=== PATIENT | female | born 1950 | race Caucasian/White ===

== ENCOUNTER 2016-06-10 22:41 | Emergency (ER) | payer OTHER ==
[~2016-06-10] VITALS: Ht 157.5 cm; Wt 71.4 kg
[~2016-06-10 22:41] MED LIST: ALPR.25 PO; CLON.5 PO; ENAL10TA7 PO; OMEP20TA39 PO; OXYC-68 PO; SOMA350T PO; TRAZ100T4 PO; VENL75 PO
[2016-06-10 22:56] VITALS: BP 150/94; PULSE 83; RESP 18; TEMP 98.2; O2SAT 96
[2016-06-10] MEDS ORDERED: SODIUM CHLOR 0.9% 1000 ML INJ 1,000 ML IV ONE (23:19)
[2016-06-10] MEDS ORDERED: ENAL20TA PO (23:24)
[2016-06-10] MEDS ORDERED: TRAZ100T4 PO (23:24)
[2016-06-10] MEDS ORDERED: OXYC-395 PO (23:24)
[2016-06-10] MEDS ORDERED: OMEP40CA2 PO (23:24)
[2016-06-10] MEDS ORDERED: ALPR.25 PO (23:24)
[2016-06-10] MEDS ORDERED: BACL10TA PO (23:24)
[2016-06-10 23:25] VITALS: BP 150/94; PULSE 83; RESP 18; TEMP 98.2; O2SAT 96
[2016-06-10] MEDS ORDERED: PANTOPRAZOLE SODIUM 40 MG VIAL IV PUSH ONE (23:30)
[2016-06-10] MEDS ORDERED: ONDANSETRON HCL 4 MG/2 ML VIAL IVP ONE (23:30)
[2016-06-10] MEDS ORDERED: SODIUM CHLORIDE 0.9% FLUSH 10 ML FLUSH IVF PRN (23:30)
--- NOTE | 2016-06-10 23:33 | PD ---
HPI Chief Complaint: GI Complaint Time Seen by Provider: 23:19 Travel History International Travel<30 days: No Contact w/Intl Traveler<30days: No Traveled to known affect area: No History of Present Illness HPI 65-year-old female presents to the emergency department by private transportation for evaluation of abdominal pain with nausea vomiting diarrhea times one week and syncope 2 this evening. Patient states that while trying to have a bowel movement she passed out on the toilet between 3 and 4 PM and then again between 6 and 7 PM. Patient states she drove herself to the hospital. Patient states she's been sick for approximately one week. Patient states one week ago she was seen at [facility] after being evaluated by her primary care provider for swelling of the right lower extremity and being sent to the ED for an ultrasound to evaluate for DVT. Reportedly this study was negative. Patient is status post left [id number] amputation for complications from melanoma. Patient has history of COPD hypertension peptic ulcer disease anxiety depression and chronic pain syndrome as well. Patient denies alcohol use and admits to ongoing tobacco use. Patient denies any chest pain palpitations shortness of breath pleuritic pain or sweats. Patient states that she is been experiencing coffee-ground emesis without hematemesis and coffee-ground diarrhea without rafiq hematochezia. Patient also complains of left lower quadrant abdominal pain as well as epigastric pain. Patient did not contact her primary care provider during the week with ongoing GI symptoms after seeing her provider one week ago for right lower extremity swelling which has resolved. Patient denies other concerns or complaints. Patient denies head pain or neck pain. Patient denies chest wall pain pleuritic chest pain shortness of breath back or pelvis pain. No dysuria frequency urgency or hematuria. Patient rates her current pain 3/10 in intensity. Patient states it severe burning. Patient states she took her last pain medication hydrocodone last evening and decided not to take any pain medication today. PFSH Past Medical History Narrative Medical Arthritis asthma COPD anxiety depression melanoma chest pain hypertension GERD irritable bowel syndrome migraines diverticulitis peripheral neuropathy tubal ligation cholecystectomy cervical fusion hysterectomy BKA; tobacco use; nursing notes reviewed Arthritis: Yes (OSTEO) Asthma: Yes Autoimmune Disease: No Blood Disorders: No Anxiety: Yes Depression: Yes Heart Rhythm Problems: No Cancer: Yes (Melanoma) Cardiovascular Problems: No High Cholesterol: No Chemotherapy: No Chest Pain: Yes Congestive Heart Failure: No COPD: Yes Cerebrovascular Accident: No Diabetes: No Diminished Hearing: No Diverticulitis: Yes Endocrine: No Gastrointestinal Disorders: Yes (OBS, IRRITABLE BOWEL) GERD: Yes Glaucoma: No Genitourinary: Yes Headaches: Yes (The patient indicated that she had a headache during this assessment. ) Hepatitis: No Hiatal Hernia: No Hypertension: Yes Immune Disorder: No Implanted Vascular Access Dvce: No Kidney Stones: No Musculoskeletal: Yes (ARTHRITIS) Neurologic: Yes (NUMBNESS AND TINGLING EXTREMETIES) Psychiatric: Yes (Depression, suicidal thoughts, anxiety. ) Reproductive: No Respiratory: Yes (COPD SOB) Integumentary: Yes (RT INNER ANKLE SKIN GRAFT SITE) Immunizations Current: No Migraines: Yes Myocardial Infarction: No Radiation Therapy: No Renal Failure: No Seizures: No Sickle Cell Disease: No Sleep Apnea: No Thyroid Disease: No Ulcer: No PNEUMOCCOCAL Vaccine (Year): 3 Menopausal: Yes : 5 Para: 4 Tubal Ligation: Yes Past Surgical History Abdominal Surgery: Yes (CHOLECYSTECTOMY 2004) AICD: No Appendectomy: No Arteriovenous Shunt: No Cardiac Surgery: No Cholecystectomy: Yes (2004) Ear Surgery: No Endocrine Surgery: No Eye Surgery: No Genitourinary Surgery: No Gynecologic Surgery: Yes (HX OF CANCER, CLITORAS REMOVED) Hysterectomy: Yes Insulin Pump: No Joint Replacement: No Neurologic Surgery: Yes (C4-5 FUSION, "cut the nerve endings in my lower back") Oral Surgery: Yes (TEETH FOR PARTIALS) Pacemaker: No Thoracic Surgery: No Other Surgery: Yes (Spinal fusion, Hysterectomy,BKA) Social History Alcohol Use: No Tobacco Use: Yes (1/2 ppd) Substance Use: Yes (HX OF MARIJUANA) Allergies-Medications (Allergen,Severity, Reaction): Coded Allergies: Darvocet-N 100 (Verified Allergy, Severe, N & V; hives, 06/10/16) Toradol (Verified Allergy, Severe, ITCHING, 06/10/16) Darvon (Verified Adverse Reaction, Severe, VOMITING, 06/10/16) Flexeril (Verified Adverse Reaction, Severe, VOMITING, 06/10/16) Talwin (Verified Adverse Reaction, Severe, vomiting, 06/10/16) Morphine (Verified Adverse Reaction, Intermediate, NAUSEA, 06/10/16) STATES NOT ALLERGIC Tylenol #3 (Verified Adverse Reaction, Intermediate, EMESIS, 06/10/16) Reported Meds & Prescriptions Reported Meds & Active Scripts Active Carafate Liq (Sucralfate) 1 Gm/10 Ml Susp 1 Gm PO QID 7 Days on empty stomach Reported Omeprazole 40 Mg Cap 40 Mg PO DAILY Trazodone (Trazodone HCl) 100 Mg Tab 200 Mg PO HS Enalapril (Enalapril Maleate) 20 Mg Tab 20 Mg PO BID Oxycodone (Oxycodone HCl) 10 Mg Tab 10 Mg PO Q4H PRN Baclofen 10 Mg Tab 10 Mg PO DAILY Xanax (Alprazolam) 0.25 Mg Tab 0.25 Mg PO Q4H PRN Review of Systems Except as stated in HPI: all other systems reviewed are Neg General / Constitutional: Positive: Fever, No: Chills HENT: No: Congestion Cardiovascular: Positive: Syncope, No: Chest Pain or Discomfort, Diaphoresis Respiratory: No: Shortness of Breath Gastrointestinal: Positive: Nausea, Vomiting, Diarrhea, Abdominal Pain, No: Hematemesis, Hematochezia Genitourinary: No: Urgency, Frequency, Dysuria, Flank Pain Musculoskeletal: No: Myalgias, Arthralgias Skin: No Rash Neurologic: Positive: Weakness, Dizziness, Syncope, No: Focal Abnormalities, Coordination Problem, Headache Psychiatric: Positive: Anxiety, No: Depression, Suicidal Ideations Hematologic/Lymphatic: No: Easy Bruising Physical Exam Narrative GENERAL: Well-developed well-nourished female in no acute distress no respiratory distress SKIN: Warm and dry. HEAD: Atraumatic. Normocephalic. EYES: Pupils equal and round. No scleral icterus. No injection or drainage. ENT: No nasal bleeding or discharge. Mucous membranes pink and moist. NECK: Trachea midline. No JVD. CARDIOVASCULAR: Regular rate and rhythm. RESPIRATORY: No accessory muscle use. Clear to auscultation. Breath sounds equal bilaterally. GASTROINTESTINAL: Abdomen soft, tender left lower quadrant without guarding or rebound, nondistended. Hepatic and splenic margins not palpable. Rectal exam: Normal sphincter tone brown mucoid stool on the exam glove. MUSCULOSKELETAL: Extremities without clubbing, cyanosis, or edema. No obvious deformities. NEUROLOGICAL: Awake and alert. No obvious cranial nerve deficits. Motor grossly within normal limits. Five out of 5 muscle strength in the arms and legs. Normal speech. PSYCHIATRIC: Appropriate mood and affect; insight and judgment normal. Data Data Last Documented VS Vital Signs Date Time Temp Pulse Resp B/P Pulse Ox O2 Delivery O2 Flow Rate FiO2 06/11/16 02:49 18 96 06/11/16 02:01 73 107/68 73 124/78 79 139/94 06/11/16 01:59 Room Air 06/10/16 23:25 98.2 Orders Electrocardiogram (06/10/16 23:19) Complete Blood Count With Diff (06/10/16 23:19) Comprehensive Metabolic Panel (06/10/16 23:19) Magnesium (Mg) (06/10/16 23:19) Troponin I (06/10/16 23:19) Act Partial Throm Time (Ptt) (06/10/16 23:19) Prothrombin Time / Inr (Pt) (06/10/16 23:19) Urinalysis - C+S If Indicated (06/10/16 23:19) Chest, Single Ap (06/10/16 23:19) Ct Brain W/O Iv Contrast(Rout) (06/10/16 23:19) Ecg Monitoring (06/10/16 23:19) Iv Access Insert/Monitor (06/10/16 23:19) Oximetry (06/10/16 23:19) Ondansetron Inj (Zofran Inj) (06/10/16 23:30) Sodium Chloride 0.9% Flush (Ns Flush) (06/10/16 23:30) Sodium Chlor 0.9% 1000 Ml Inj (Ns 1000 M (06/10/16 23:19) Pantoprazole Inj (Protonix Inj) (06/10/16 23:30) Type And Screen (06/10/16 23:19) Hydromorphone Pf Inj (Dilaudid Pf Inj) (06/11/16 00:45) Ct Abd/Pel W/O Iv Contrast (06/10/16 ) Orthostatic Vital Signs (06/11/16 01:42) Sodium Chlor 0.9% 1000 Ml Inj (Ns 1000 M (06/11/16 02:15) Sucralfate Liq (Carafate Liq) (06/11/16 02:30) Labs Laboratory Tests Test 06/11/16 00:10 White Blood Count 8.5 TH/MM3 Red Blood Count 4.67 MIL/MM3 Hemoglobin 13.8 GM/DL Hematocrit 42.1 % Mean Corpuscular Volume 90.0 FL Mean Corpuscular Hemoglobin 29.5 PG Mean Corpuscular Hemoglobin 32.7 % Concent Red Cell Distribution Width 14.0 % Platelet Count 333 TH/MM3 Mean Platelet Volume 10.0 FL Neutrophils (%) (Auto) 61.4 % Lymphocytes (%) (Auto) 32.0 % Monocytes (%) (Auto) 4.4 % Eosinophils (%) (Auto) 1.2 % Basophils (%) (Auto) 1.0 % Neutrophils # (Auto) 5.2 TH/MM3 Lymphocytes # (Auto) 2.7 TH/MM3 Monocytes # (Auto) 0.4 TH/MM3 Eosinophils # (Auto) 0.1 TH/MM3 Basophils # (Auto) 0.1 TH/MM3 CBC Comment DIFF FINAL Differential Comment Prothrombin Time 10.8 SEC Prothromb Time International 1.0 RATIO Ratio Activated Partial 23.8 SEC Thromboplast Time Urine Color YELLOW Urine Turbidity CLEAR Urine pH 5.5 Urine Specific [place] 1.007 Urine Protein NEG mg/dL Urine Glucose (UA) NEG mg/dL Urine Ketones NEG mg/dL Urine Occult Blood SMALL Urine Nitrite NEG Urine Bilirubin NEG Urine Leukocyte Esterase NEG Urine RBC 0-3 /hpf Urine Squamous Epithelial 0-5 /hpf Cells Urine Bacteria RARE /hpf Urine Mucus RARE /lpf Microscopic Urinalysis Comment CULT NOT INDICATED Sodium Level 142 MEQ/L Potassium Level 3.8 MEQ/L Chloride Level 105 MEQ/L Carbon Dioxide Level 29.6 MEQ/L Anion Gap 7 MEQ/L Blood Urea Nitrogen 4 MG/DL Creatinine 0.88 MG/DL Estimat Glomerular Filtration 65 ML/MIN Rate Random Glucose 95 MG/DL Calcium Level 9.1 MG/DL Magnesium Level 2.1 MG/DL Total Bilirubin 0.3 MG/DL Aspartate Amino Transf 19 U/L (AST/SGOT) Alanine Aminotransferase 19 U/L (ALT/SGPT) Alkaline Phosphatase 42 U/L Troponin I LESS THAN 0.02 NG/ML Total Protein 7.3 GM/DL Albumin 3.7 GM/DL Blood Type O POSITIVE Antibody Screen NEGATIVE MDM Medical Decision Making Medical Screen Exam Complete: Yes Emergency Medical Condition: Yes Medical Record Reviewed: Yes Interpretation(s) EKG normal sinus rhythm rate [address] elevation or injury pattern change noted Differential Diagnosis Gastroenteritis, electrolyte disturbance, anemia, GI bleed, diverticulitis, vasovagal syncope, minor CHI, ICH, arrhythmia Narrative Course Patient placed on ekg monitor tech IV access obtained EKG performed reveals no acute ST elevation or injury pattern; patient administered maintenance IV fluids normal saline 125 cc per hour along with Protonix 40 mg IV Zofran 4 mg IV and imaging studies ordered HemaPrompt Point of Care Internal Pos. & Neg. Controls: Passed Fecal Specimen Occult Blood: Negative Diagnosis Primary Impression: Gastroenteritis Additional Impressions: Gastritis Qualified Code: K29.70 - Gastritis without bleeding, unspecified chronicity, unspecified gastritis type Vasovagal syncope Referrals: Primary Care Physician 1 day Patient Instructions: General Instructions, Narcotic given in the ED Additional Instructions: Follow clear liquid diet for next 12-24 hours advance as tolerated to bland/ Driss diet then regular diet avoiding fried and fatty foods Continue current medications as presently prescribed as tolerated Use Carafate as prescribed for 7 days Follow-up with her primary care provider and your flare maker Return to the emergency department for any concerns or change in condition Take acetaminophen/Tylenol as needed for fever 100.4F or greater Do not take any nonsteroidal anti-inflammatory medication such as ibuprofen/ Advil/Motrin or Aleve/Naprosyn/naproxen Med/Other Pt SpecificInfo: Prescription(s) given Scripts Sucralfate Liq (Carafate Liq)1 Gm/10 Ml Susp1 Gm PO QID 7 Days Ref 0 on empty stomach Prov:Giovana Rivera MD 06/11/16 Disposition: 01 DISCHARGE HOME Condition: Stable Giovana Rivera MD Jun 10, 2016 23:33
[2016-06-10 23:34] VITALS: RESP 18; O2SAT 96
--- NOTE | 2016-06-10 23:44 | RADHPO ---
EXAM DATE/TIME: 06/10/2016 23:34 [facility] COMPARISON: CHEST SINGLE AP, June 02, 2015, 22:01. INDICATIONS : Nausea, vomiting and diarrhea. MEDICAL HISTORY : Emphysema. Chronic obstructive pulmonary disease. SURGICAL HISTORY : None. ENCOUNTER: Initial ACUITY: 4 - 6 days PAIN SCORE: 6/10 LOCATION: Bilateral chest FINDINGS: A single view of the chest demonstrates the lungs to be symmetrically aerated without evidence of mas s, infiltrate or effusion. The cardiomediastinal contours are unremarkable and stable. Osseous stru ctures are intact and stable. CONCLUSION: No acute disease. No significant change has occurred. Darell Taylor MD on June 10, 2016 at 23:42 Board Certified Radiologist. This report was verified electronically.
[2016-06-11] VITALS: BP 139/74; PULSE 72; RESP 18; O2SAT 96
[2016-06-11] MEDS ORDERED: HYDROmorphone HCL PF 1 MG/ML VIAL IV PUSH ONE (00:45)
[2016-06-11 00:49] LABS: AUTOMATED NEUTROPHIL # 5.2 TH/MM3 (1.8-7.7); BASOPHIL # 0.1 TH/MM3 (0-0.2); BLOOD, URINE SMALL (NEG); EOSINOPHIL # 0.1 TH/MM3 (0-0.4); EOSINOPHIL % 1.2 % (0.0-4.0); GLUCOSE,URINE NEG (NEG); HEMATOCRIT 42.1 % (35.0-46.0); KETONE, URINE NEG (NEG); LYMPHOCYTE # 2.7 TH/MM3 (1.0-4.8); MEAN CORPUSCULAR HEMOGLOBIN 29.5 PG (27.0-34.0); MEAN CORPUSCULAR HGB CONC 32.7 % (32.0-36.0); MONO % 4.4 % (0.0-8.0); NEUT % 61.4 % (16.0-70.0); NITRITE,URINE NEG (NEG); PH, URINE 5.5 (5.0-8.5); PLATELET COUNT 333 TH/MM3 (150-450); RED BLOOD COUNT 4.67 MIL/MM3 (4.00-5.30); WHITE BLOOD COUNT 8.5 TH/MM3 (4.0-11.0)
[2016-06-11 00:50] LABS: HEMO FLAGS DIFF FINAL
[2016-06-11 00:54] LABS: BACTERIA, URINE RARE /hpf; MUCUS URINE RARE /lpf (OCC); SQUAMOUS EPITHELIAL CELL URINE 0-5 /hpf (0-5); URINE COLOR YELLOW (YELLW/STRAW)
[2016-06-11 00:55] LABS: CHLORIDE 105 MEQ/L (98-107); COMMENT (UR) CULT NOT INDICATED; CULTURE IF INDICATED CULT NOT INDICATED; POTASSIUM 3.8 MEQ/L (3.5-5.1); RBC, URINE 0-3 /hpf (0-3); SODIUM (NA) 142 MEQ/L (136-145)
[2016-06-11 00:58] LABS: ANION GAP 7 MEQ/L (5-15); BICARBONATE 29.6 MEQ/L (21.0-32.0); MAGNESIUM 2.1 MG/DL (1.5-2.5)
[2016-06-11 00:59] LABS: BLOOD UREA NITROGEN 4 MG/DL (7-18)
[2016-06-11 01:00] LABS: APTT (PATIENT) 23.8 SEC (24.3-30.1); PROTHROMBIN TIME - PATIENT 10.8 SEC (9.8-11.6)
[2016-06-11 01:01] LABS: ALT (GPT) 19 U/L (10-53); AST (GOT) 19 U/L (15-37)
[2016-06-11 01:02] LABS: GLOMERULAR FILTRATION RATE 65 ML/MIN (>89)
[2016-06-11 01:03] VITALS: BP 159/80; PULSE 76; RESP 18; O2SAT 96
[2016-06-11 01:03] LABS: TOTAL BILIRUBIN ADULT 0.3 MG/DL (0.2-1.0)
[2016-06-11 01:04] LABS: ALKALINE PHOSPHATASE 42 U/L (45-117)
--- NOTE | 2016-06-11 01:39 | RADHPO ---
EXAM DATE/TIME: 06/11/2016 01:07 [facility] COMPARISON: CT BRAIN W/O CONTRAST, June 02, 2015, 21:42. INDICATIONS : Dizziness. Nausea. Vomiting. RADIATION DOSE: 66.01 CTDIvol (mGy) MEDICAL HISTORY : Hypertension. Carcinoma, not otherwise specified. SURGICAL HISTORY : None. ENCOUNTER: Initial ACUITY: 4 - 6 days PAIN SCALE: 10/10 LOCATION: cranial TECHNIQUE: Multiple contiguous axial images were obtained of the head. Using automated exposure control and adj ustment of the mA and/or kV according to patient size, radiation dose was kept as low as reasonably a chievable to obtain optimal diagnostic quality images. FINDINGS: CEREBRUM: The ventricles are normal for age. No evidence of midline shift, mass lesion, hemorrhage or acute in farction. There are stable chronic white matter changes compared to the prior study. No extra-axial fluid collections are seen. POSTERIOR FOSSA: The cerebellum and brainstem are intact. The 4th ventricle is midline. The cerebellopontine angle i s unremarkable. EXTRACRANIAL: The visualized portion of the orbits is intact. SKULL: The calvaria is intact. No evidence of skull fracture. CONCLUSION: Stable CT scan of the brain compared to the prior examination. Darell Taylor MD on June 11, 2016 at 1:36 Board Certified Radiologist. This report was verified electronically.
--- NOTE | 2016-06-11 01:42 | RADHPO ---
EXAM DATE/TIME: 06/11/2016 01:11 [facility] COMPARISON: CT ABDOMEN & PELVIS W/O CONTRAST, February 17, 2014, 21:33. INDICATIONS : Left lower quadrant pain. Nausea. Vomiting. Diarrhea. ORAL CONTRAST: No oral contrast ingested. RADIATION DOSE: 13.27 CTDIvol (mGy) MEDICAL HISTORY : Gastroesophageal reflux disease. Hypertension. Carcinoma, not otherwise specified. SURGICAL HISTORY : Cholecystectomy. Hysterectomy. ENCOUNTER: Initial ACUITY: 4 - 6 days PAIN SCALE: 10/10 LOCATION: Left lower quadrant TECHNIQUE: Volumetric scanning of the abdomen and pelvis was performed. Using automated exposure control and ad justment of the mA and/or kV according to patient size, radiation dose was kept as low as reasonably achievable to obtain optimal diagnostic quality images. The lack of IV contrast limits the diagnosis for certain organ pathology. FINDINGS: LOWER LUNGS: The visualized lower lungs are clear. LIVER: Homogeneous density without lesion. There is no dilation of the biliary tree. No gallbladder, surgi escobar removed. SPLEEN: Normal size without lesion. PANCREAS: Within normal limits. KIDNEYS: Normal in size and shape. There is no mass, stone, or hydronephrosis. ADRENAL GLANDS: Within normal limits. VASCULAR: There is no aortic aneurysm. BOWEL/MESENTERY: The stomach, small bowel, and colon demonstrate no acute abnormality. There is no free intraperitone al air or fluid. The appendix is unremarkable. There are some scattered diverticula along the sigmoid colon without inflammatory changes. ABDOMINAL WALL: Within normal limits. RETROPERITONEUM: There is no lymphadenopathy. BLADDER: No wall thickening or mass. REPRODUCTIVE: Within normal limits. INGUINAL: There is no lymphadenopathy or hernia. MUSCULOSKELETAL: Within normal limits for patient age. No significant change compared to the prior study. CONCLUSION: 1. Scattered diverticulosis of the sigmoid colon. No inflammatory changes are seen at this time. 2. Status post cholecystectomy. 3. No new or significant changes compared to the prior study. Darell Taylor MD on June 11, 2016 at 1:38 Board Certified Radiologist. This report was verified electronically.
[2016-06-11 01:59] VITALS: BP 150/82; PULSE 75; RESP 18; O2SAT 97
[2016-06-11 02:01] VITALS: BP_SYST 107; BP_SYST 124; BP_SYST 139; BP_DIAS 68; BP_DIAS 78; BP_DIAS 94; RESP 18
[2016-06-11] MEDS ORDERED: SODIUM CHLOR 0.9% 1000 ML INJ 1,000 ML IV ONE (02:15)
[2016-06-11] MEDS ORDERED: CARA1SUS3 PO (02:17)
[2016-06-11] MEDS ORDERED: SUCRALFATE 1 GM/10 ML CUP PO ONE (02:30)
--- NOTE | 2016-06-11 13:26 | EKG ---
Date Performed: 06/10/2016 Time Performed: 23:26:04 PTAGE: 65 years EKG: Possible ectopic atrial rhythm Borderline ECG PREVIOUS TRACING : 08/14/2014 13.24 No significant change from previous tracing noted. DOCTOR: Reji Reed Interpretating Date/Time 06/11/2016 13:24:30
== END 2016-06-11 02:51 | disposition home or self-care (01) ==
LOC: PHED 22:41
DX: K52.9 Noninfective gastroenteritis and colitis, unspecified (principal); K29.70 Gastritis, unspecified, without bleeding; R55 Syncope and collapse; R19.7 Diarrhea, unspecified; R10.9 Unspecified abdominal pain; J44.9 Chronic obstructive pulmonary disease, unspecified; J45.909 Unspecified asthma, uncomplicated; I10 Essential (primary) hypertension; R94.31 Abnormal electrocardiogram [ECG] [EKG]; F17.210 Nicotine dependence, cigarettes, uncomplicated
CPT/HCPCS: 70450; 71010; 74176; 80053; 81001; 83735; 84484; 85025; 85610; 85730; 86850; 86900; 86901; 93005; 96361; 96374; 96375; 99284; C9113; J1170; J2405; J7030

== ENCOUNTER 2016-08-04 20:13 | Emergency (ER) | payer OTHER ==
[~2016-08-04] VITALS: Ht 160 cm; Wt 76.3 kg
[~2016-08-04 20:13] MED LIST changes: +BACL10TA PO; +CARA1SUS3 PO; -CLON.5 PO; -ENAL10TA7 PO; +ENAL20TA PO; -OMEP20TA39 PO; +OMEP40CA2 PO; +OXYC-395 PO; -OXYC-68 PO; -SOMA350T PO; -VENL75 PO
[2016-08-04 20:17] VITALS: BP 102/64; PULSE 79; RESP 20; TEMP 98.3; O2SAT 92
[2016-08-04] MEDS ORDERED: TRAZ100T6 PO (21:09)
[2016-08-04] MEDS ORDERED: SODIUM CHLORIDE 0.9% FLUSH 10 ML FLUSH IVF PRN (21:15)
--- NOTE | 2016-08-04 21:21 | PD ---
HPI Chief Complaint: Pain: Acute or Chronic Time Seen by Provider: 21:06 Travel History International Travel<30 days: No Contact w/Intl Traveler<30days: No Traveled to known affect area: No History of Present Illness HPI 66-year-old female presents to the emergency department by private vehicle after driving herself to the ER for complaint of generalized body pain chest pain shortness of breath lower extremity pain back pain and redness to her left BKA stump. A schneider report subjective fever no chills nonproductive cough. Patient states she last traveled long distance 2 months ago. Patient states symptoms of present for 3 weeks. Patient states her doctors out of town so she has not been able to get a refill of her medications which she has been out of for one week or maybe 2 weeks. Patient reportedly takes Percocet. Patient states that this does not provide her adequate relief and she needs hydrocodone. 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 Patient points to her left lower back over the SI joint. Patient denies nausea vomiting abdominal pain diarrhea dysuria frequency urgency or flank pain. Patient states that she has also had generalized weakness and has been experiencing frequent falls but denies any head injury. Patient is chronically prescribed trazodone oxycodone baclofen and Xanax as well as enalapril. Patient rates her overall pain 10 over 10 in intensity. PFSH Past Medical History Narrative Medical Anxiety depression COPD arthritis melanoma chest pain bowel syndrome GERD hypertension peripheral neuropathy diverticulosis tubal ligation cholecystectomy cervical fusion hysterectomy left BKA tobacco use alcohol use; nursing notes reviewed Arthritis: Yes (OSTEO) Asthma: Yes Autoimmune Disease: No Blood Disorders: No Anxiety: Yes Depression: Yes Heart Rhythm Problems: No Cancer: Yes (Melanoma) Cardiovascular Problems: No High Cholesterol: No Chemotherapy: No Chest Pain: Yes Congestive Heart Failure: No COPD: Yes Cerebrovascular Accident: No Diabetes: No Diminished Hearing: No Diverticulitis: Yes Endocrine: No Gastrointestinal Disorders: Yes (OBS, IRRITABLE BOWEL) GERD: Yes Glaucoma: No Genitourinary: Yes Headaches: Yes Hepatitis: No Hiatal Hernia: No Hypertension: Yes Immune Disorder: No Implanted Vascular Access Dvce: No Kidney Stones: No Musculoskeletal: Yes (ARTHRITIS) Neurologic: Yes (NUMBNESS AND TINGLING EXTREMETIES) Psychiatric: Yes (Depression, suicidal thoughts, anxiety. ) Reproductive: No Respiratory: Yes (COPD SOB) Integumentary: Yes (RT INNER ANKLE SKIN GRAFT SITE) Immunizations Current: Yes Migraines: Yes Myocardial Infarction: No Radiation Therapy: No Renal Failure: No Seizures: No Sickle Cell Disease: No Sleep Apnea: No Thyroid Disease: No Ulcer: No PNEUMOCCOCAL Vaccine (Year): 3 ?: Not Menopausal: Yes : 5 Para: 4 Tubal Ligation: Yes Past Surgical History Abdominal Surgery: Yes (CHOLECYSTECTOMY 2004) AICD: No Appendectomy: No Arteriovenous Shunt: No Cardiac Surgery: No Cholecystectomy: Yes (2004) Ear Surgery: No Endocrine Surgery: No Eye Surgery: No Genitourinary Surgery: No Gynecologic Surgery: Yes (HX OF CANCER, CLITORAS REMOVED) Hysterectomy: Yes Insulin Pump: No Joint Replacement: No Neurologic Surgery: Yes (C4-5 FUSION, "cut the nerve endings in my lower back") Oral Surgery: Yes (TEETH FOR PARTIALS) Pacemaker: No Thoracic Surgery: No Other Surgery: Yes (Spinal fusion, Hysterectomy,BKA) Social History Alcohol Use: No Tobacco Use: Yes (1 PPD) Substance Use: Yes (MARIJUANA ON OCCASION) Allergies-Medications (Allergen,Severity, Reaction): Coded Allergies: Darvocet-N 100 (Verified Allergy, Severe, N & V; hives, 08/04/16) Toradol (Verified Allergy, Severe, ITCHING, 08/04/16) Darvon (Verified Adverse Reaction, Severe, VOMITING, 08/04/16) Flexeril (Verified Adverse Reaction, Severe, VOMITING, 08/04/16) Talwin (Verified Adverse Reaction, Severe, vomiting, 08/04/16) Morphine (Verified Adverse Reaction, Intermediate, NAUSEA, 08/04/16) STATES NOT ALLERGIC Tylenol #3 (Verified Adverse Reaction, Intermediate, EMESIS, 08/04/16) Reported Meds & Prescriptions Reported Meds & Active Scripts Active Carafate Liq (Sucralfate) 1 Gm/10 Ml Susp 1 Gm PO QID 7 Days on empty stomach Reported Trazodone (Trazodone HCl) 100 Mg Tablet 200 Mg PO HS Omeprazole 40 Mg Cap 40 Mg PO DAILY Enalapril (Enalapril Maleate) 20 Mg Tab 20 Mg PO BID Oxycodone (Oxycodone HCl) 10 Mg Tab 10 Mg PO Q4H PRN Baclofen 10 Mg Tab 10 Mg PO DAILY Xanax (Alprazolam) 0.25 Mg Tab 0.25 Mg PO Q4H PRN Review of Systems Except as stated in HPI: all other systems reviewed are Neg General / Constitutional: Positive: Fever (subjective), No: Chills HENT: No: Headaches, Congestion, Neck Pain Cardiovascular: Positive: Chest Pain or Discomfort, No: Diaphoresis, Syncope, Dyspnea on exertion, Edema Respiratory: Positive: Cough, Shortness of Breath, Wheezing, No: Hemoptysis, Pleuritic Pain Gastrointestinal: No: Nausea, Vomiting, Diarrhea, Abdominal Pain Genitourinary: No: Dysuria, Flank Pain Musculoskeletal: Positive: Myalgias, Arthralgias, Pain Skin: No Rash Neurologic: Positive: Weakness, Dizziness, No: Syncope, Focal Abnormalities, Coordination Problem Psychiatric: Positive: Anxiety, No: Depression, Suicidal Ideations Endocrine: No: Heat Intolerance, Cold Intolerance Hematologic/Lymphatic: No: Easy Bruising Physical Exam Narrative GENERAL: Well-developed well-nourished female in no acute distress no respiratory distress repetitively complaining about entire body pain; GCS 15 SKIN: Warm and dry. HEAD: Normocephalic. EYES: No scleral icterus. No injection or drainage. NECK: Supple, trachea midline. No JVD or lymphadenopathy. CARDIOVASCULAR: Regular rate and rhythm without murmurs, gallops, or rubs. RESPIRATORY: Breath sounds equal bilaterally few expiratory wheezes bilaterally no rales or rhonchi. No accessory muscle use. GASTROINTESTINAL: Abdomen soft, non-tender, nondistended. MUSCULOSKELETAL: No cyanosis, right lower extremity trace to 1+ edema, dorsalis pedis pulse 2+ to palpation; left lower extremity left BKA no edema no increased warmth mild erythema; bilateral femoral pulses 2+ to palpation. BACK: Nontender without obvious deformity. Tender to palpation over the left SI joint. No CVA tenderness. Data Data Last Documented VS Vital Signs Date Time Temp Pulse Resp B/P Pulse Ox O2 Delivery O2 Flow Rate FiO2 08/04/16 20:17 98.3 79 20 102/64 92 Orders Complete Blood Count With Diff (08/04/16 21:06) Basic Metabolic Panel (Bmp) (08/04/16 21:06) Magnesium (Mg) (08/04/16 21:06) Troponin I (08/04/16 21:06) Urinalysis - C+S If Indicated (08/04/16 21:06) Iv Access Insert/Monitor (08/04/16 21:06) Electrocardiogram (08/04/16 21:06) Ecg Monitoring (08/04/16 21:06) Oximetry (08/04/16 21:06) Oxygen Administration (08/04/16 21:06) Chest, Single Ap (08/04/16 21:06) Sodium Chloride 0.9% Flush (Ns Flush) (08/04/16 21:15) Albuterol-Ipratropium Neb (Duoneb Neb) (08/04/16 21:15) Us Leg Venous Doppler (08/04/16 ) Alcohol (Ethanol) (08/04/16 21:06) Drug Screen, Random Urine (08/04/16 21:06) MDM Medical Decision Making Medical Screen Exam Complete: Yes Emergency Medical Condition: Yes Medical Record Reviewed: Yes Differential Diagnosis Chronic pain syndrome, medication refill, exacerbation COPD, ACS, DVT, PE, pneumonia, UTI, malingering Narrative Course IV access obtained specimens collected and sent for resulting; patient administered DuoNeb 2 Giovana Rivera MD Aug 04, 2016 21:21
[2016-08-04] MEDS: RESP: ALBUTEROL 2.5 MG/IPRATROPIUM 0.5 MG NEB (SCH) INH ×2 (21:28→21:39)
[2016-08-04 21:37] LABS: AUTOMATED NEUTROPHIL # 4.2 TH/MM3 (1.8-7.7); BASOPHIL # 0.1 TH/MM3 (0-0.2); BASOPHIL % 1.5 % (0.0-2.0); EOSINOPHIL # 0.3 TH/MM3 (0-0.4); EOSINOPHIL % 3.6 % (0.0-4.0); HEMATOCRIT 34.1 % (35.0-46.0); HEMO FLAGS DIFF FINAL; LYMPH % 30.6 % (9.0-44.0); LYMPHOCYTE # 2.3 TH/MM3 (1.0-4.8); MEAN CELL VOLUME 88.2 FL (80.0-100.0); MEAN CORPUSCULAR HEMOGLOBIN 29.5 PG (27.0-34.0); MEAN CORPUSCULAR HGB CONC 33.4 % (32.0-36.0); MONO % 7.8 % (0.0-8.0); NEUT % 56.5 % (16.0-70.0); PLATELET COUNT 191 TH/MM3 (150-450); RED BLOOD COUNT 3.87 MIL/MM3 (4.00-5.30); RED CELL DISTRIBUTION WIDTH 12.3 % (11.6-17.2); WHITE BLOOD COUNT 7.5 TH/MM3 (4.0-11.0)
[2016-08-04 21:38] LABS: BLOOD, URINE TRACE (NEG); GLUCOSE,URINE NEG (NEG); KETONE, URINE NEG (NEG); NITRITE,URINE NEG (NEG); PH, URINE 5.5 (5.0-8.5)
[2016-08-04 21:54] LABS: URINE COLOR STRAW (YELLW/STRAW)
[2016-08-04 21:55] LABS: SQUAMOUS EPITHELIAL CELL URINE 0-5 /hpf (0-5); WBC, URINE 0-2 /hpf (0-5)
[2016-08-04 21:56] LABS: AMPHETAMINE, URINE NEG (NEG); COMMENT (UR) CULT NOT INDICATED; CULTURE IF INDICATED CULT NOT INDICATED; RBC, URINE 0-3 /hpf (0-3)
[2016-08-04 21:57] LABS: BARBITURATES, URINE NEG (NEG)
[2016-08-04 22:01] LABS: COCAINE, URINE NEG (NEG)
[2016-08-04 22:02] LABS: CHLORIDE 97 MEQ/L (98-107); POTASSIUM 3.3 MEQ/L (3.5-5.1); SODIUM (NA) 137 MEQ/L (136-145)
[2016-08-04 22:05] LABS: ANION GAP 7 MEQ/L (5-15); BICARBONATE 32.7 MEQ/L (21.0-32.0); BLOOD UREA NITROGEN 4 MG/DL (7-18); MAGNESIUM 1.8 MG/DL (1.5-2.5)
[2016-08-04 22:08] LABS: GLOMERULAR FILTRATION RATE 61 ML/MIN (>89)
[2016-08-04 22:20] VITALS: BP 140/80; PULSE 82; O2SAT 97
--- NOTE | 2016-08-04 22:21 | RADHPO ---
EXAM DATE/TIME: 08/04/2016 21:45 [facility] COMPARISON: US LEG RIGHT VENOUS DOPPLER, November 12, 2012, 11:01. INDICATIONS : Right leg swelling. MEDICAL HISTORY : Hypercholesterolemia. Gastroesophageal reflux disease. Chronic obstructive pulmonary disease. Hype rtension. Syncope. Ovarian cyst. Arthritis. Carcinoma, unspecified. SURGICAL HISTORY : Cholecystectomy. Tubal ligation. C4-5 fusion. Partial hysterectomy. ENCOUNTER: Initial ACUITY: 1 day PAIN SCORE: 8/10 LOCATION: Right leg. TECHNIQUE: Venous ultrasound of the leg was performed from the inguinal ligament to the proximal calf. Real-david e, color Doppler and spectral tracing, compression and augmentation techniques were used. FINDINGS: There is normal compressibility of the deep venous system from the inguinal region to the proximal ca lf. No echogenic clot is seen in the lumen of the common femoral, femoral, popliteal, and posterior tibial veins. There is a normal response of the venous system to proximal and distal augmentation an d respiration. CONCLUSION: No DVT is identified in the right lower extremity. Bear Zaidi MD on August 04, 2016 at 22:18 Board Certified Radiologist. This report was verified electronically.
[2016-08-04] MEDS ORDERED: methylPREDNISolone SOD SUCC 125 MG/2 ML VIAL IV PUSH ONE (22:30)
[2016-08-04] MEDS ORDERED: POTASSIUM CHLORIDE 20 MEQ CONTROLLED RELEASE TAB PO ONE (22:30)
[2016-08-04] MEDS ORDERED: ALBUAER3 INH (22:36)
[2016-08-04] MEDS ORDERED: TRAM50TA PO (22:36)
[2016-08-04] MEDS ORDERED: MEDR4PAK PO (22:36)
--- NOTE | 2016-08-04 23:51 | RADHPO ---
EXAM DATE/TIME: 08/04/2016 21:52 [facility] COMPARISON: No previous studies available for comparison. INDICATIONS : Short of breath. MEDICAL HISTORY : Emphysema. Chronic obstructive pulmonary disease. SURGICAL HISTORY : None. ENCOUNTER: Initial ACUITY: 1 day PAIN SCORE: 7/10 LOCATION: Bilateral chest FINDINGS: Mild bibasilar atelectasis present. No large effusion seen. No pneumothorax. Heart size stable, withi n normal limits. CONCLUSION: Mild bibasilar atelectasis. Bear Gaspar MD on August 04, 2016 at 23:49 Board Certified Radiologist. This report was verified electronically.
--- NOTE | 2016-08-05 14:34 | EKG ---
Date Performed: 08/04/2016 Time Performed: 21:26:41 PTAGE: 66 years EKG: Ectopic atrial rhythm ABNORMAL RHYTHM ECG Compared to prior tracing no significant change. PREVIOUS TRACING : 06/10/2016 23.26 DOCTOR: Candelario Mae Interpretating Date/Time 08/05/2016 14:31:58
== END 2016-08-04 22:53 | disposition home or self-care (01) ==
LOC: PHED 20:13
DX: J44.1 Chronic obstructive pulmonary disease with (acute) exacerbation (principal); J45.909 Unspecified asthma, uncomplicated; G89.4 Chronic pain syndrome; I10 Essential (primary) hypertension; F17.200 Nicotine dependence, unspecified, uncomplicated; M79.89 Other specified soft tissue disorders; Z79.899 Other long term (current) drug therapy; R60.9 Edema, unspecified
CPT/HCPCS: 71010; 80048; 80307; 81001; 83735; 84484; 85025; 93005; 93971; 94640; 94664; 99285

== ENCOUNTER 2016-12-23 19:22 | Emergency (ER) | payer MEDICAID, OTHER ==
[~2016-12-23] VITALS: Ht 157.5 cm; Wt 74.2 kg
[~2016-12-23 19:22] MED LIST changes: +ALBUAER3 INH; +MEDR4PAK PO; +TRAM50TA PO; +TRAZ100T10 PO; -TRAZ100T4 PO
[2016-12-23 19:44] VITALS: BP 172/81; PULSE 76; RESP 20; TEMP 98.4; O2SAT 96
[2016-12-23] MEDS ORDERED: GABA300C5 PO (20:38)
[2016-12-23 20:40] VITALS: RESP 18; O2SAT 98
--- NOTE | 2016-12-23 20:43 | PD ---
HPI Chief Complaint: Respiratory Symptoms Time Seen by Provider: 20:31 Travel History International Travel<30 days: No Contact w/Intl Traveler<30days: No Traveled to known affect area: No History of Present Illness HPI The patient is a 66-year-old female who presents to the emergency department for a one-week history of cough and cold symptoms. The patient states she developed mostly dry nonproductive cough 1 week ago, however, is now spitting up "white stuff ". She does complain of mild shortness of breath and diffuse wheezing. The patient does have a history of COPD that was diagnosed one year ago, does not have any inhalers at home currently. The patient states she is unable to get an appointment until Friday with her primary physician, Dr. Yury Valentine. The patient complains of generalized malaise and myalgias,, however, denies any actual fever. She denies any nausea, vomiting, diarrhea, or abdominal pain. She does have a history of tobacco use, however, states her last cigarette was 2 weeks ago. She is not followed by a table games dealer. Symptoms are moderate without any current alleviating or exacerbating factors. PFSH Past Medical History Arthritis: Yes (OSTEO) Asthma: Yes Autoimmune Disease: No Blood Disorders: No Anxiety: Yes Depression: Yes Heart Rhythm Problems: No Cancer: Yes (Melanoma) Cardiovascular Problems: No High Cholesterol: No Chemotherapy: No Chest Pain: Yes Congestive Heart Failure: No COPD: Yes Cerebrovascular Accident: No Diabetes: No Diminished Hearing: No Diverticulitis: Yes Endocrine: No Gastrointestinal Disorders: Yes (OBS, IRRITABLE BOWEL) GERD: Yes Glaucoma: No Genitourinary: Yes Headaches: Yes Hepatitis: No Hiatal Hernia: No Hypertension: Yes Immune Disorder: No Implanted Vascular Access Dvce: No Kidney Stones: No Musculoskeletal: Yes (ARTHRITIS) Neurologic: Yes (NUMBNESS AND TINGLING EXTREMETIES) Psychiatric: Yes (Depression, suicidal thoughts, anxiety. ) Reproductive: No Respiratory: Yes (COPD SOB) Integumentary: Yes (RT INNER ANKLE SKIN GRAFT SITE) Immunizations Current: Yes Migraines: Yes Myocardial Infarction: No Radiation Therapy: No Renal Failure: No Seizures: No Sickle Cell Disease: No Sleep Apnea: No Thyroid Disease: No Ulcer: No Influenza Vaccination: No PNEUMOCCOCAL Vaccine (Year): 3 ?: Not Menopausal: Yes : 5 Para: 4 Tubal Ligation: Yes Past Surgical History Abdominal Surgery: Yes (CHOLECYSTECTOMY 2004) AICD: No Appendectomy: No Arteriovenous Shunt: No Cardiac Surgery: No Cholecystectomy: Yes (2004) Ear Surgery: No Endocrine Surgery: No Eye Surgery: No Genitourinary Surgery: No Gynecologic Surgery: Yes (HX OF CANCER, CLITORAS REMOVED) Hysterectomy: Yes Insulin Pump: No Joint Replacement: No Neurologic Surgery: Yes (C4-5 FUSION, "cut the nerve endings in my lower back") Oral Surgery: Yes (TEETH FOR PARTIALS) Pacemaker: No Thoracic Surgery: No Other Surgery: Yes (Spinal fusion, Hysterectomy,BKA) Social History Alcohol Use: No Tobacco Use: Yes (1 PPD) Substance Use: Yes (MARIJUANA ON OCCASION) Allergies-Medications (Allergen,Severity, Reaction): Coded Allergies: ketorolac (Unverified Allergy, Severe, ITCHING, 12/23/16) propoxyphene (Unverified Allergy, Severe, N & V; hives, 12/23/16) cyclobenzaprine (Unverified Adverse Reaction, Severe, VOMITING, 12/23/16) pentazocine (Unverified Adverse Reaction, Severe, vomiting, 12/23/16) acetaminophen (Unverified Adverse Reaction, Intermediate, EMESIS, 12/23/16) codeine (Unverified Adverse Reaction, Intermediate, EMESIS, 12/23/16) morphine (Unverified Adverse Reaction, Intermediate, NAUSEA, 12/23/16) STATES NOT ALLERGIC Reported Meds & Prescriptions Reported Meds & Active Scripts Active Proair Hfa 8.5 GM Inh (Albuterol Sulfate) 90 Mcg/Act Aer 2 Puff INH Q4-6H PRN 108 mcg/actuation Reported Prednisone 20 Mg Tab 20 Mg PO ONCE Gabapentin 300 Mg Cap 300 Mg PO HS Trazodone (Trazodone HCl) 100 Mg Tablet 200 Mg PO HS Omeprazole 40 Mg Cap 40 Mg PO DAILY Enalapril (Enalapril Maleate) 20 Mg Tab 20 Mg PO BID Oxycodone (Oxycodone HCl) 10 Mg Tab 10 Mg PO Q4H PRN Baclofen 10 Mg Tab 10 Mg PO DAILY Xanax (Alprazolam) 0.25 Mg Tab 0.25 Mg PO Q4H PRN Review of Systems Except as stated in HPI: all other systems reviewed are Neg General / Constitutional: No: Fever HENT: No: Sore Throat Cardiovascular: No: Chest Pain or Discomfort Respiratory: Positive: Cough, Shortness of Breath, Wheezing Gastrointestinal: No: Nausea, Vomiting, Abdominal Pain Musculoskeletal: Positive: Myalgias, Weakness Physical Exam Narrative GENERAL: Awake, alert, pleasant 66-year-old female who appears her stated age and is in no acute respiratory distress. Patient is lying supine at a 30 incline with no obvious respiratory distress. SKIN: Focused skin assessment warm/dry. HEAD: Atraumatic. Normocephalic. EYES: Pupils equal and round. No scleral icterus. No injection or drainage. ENT: No nasal bleeding or discharge. Cobblestoning of posterior pharynx but no exudate noted. NECK: Trachea midline. No JVD. CARDIOVASCULAR: Regular rate and rhythm. No murmur appreciated. RESPIRATORY: No accessory muscle use. Prolonged expiratory phase with diffuse wheezing. GASTROINTESTINAL: Abdomen soft, non-tender, nondistended. No rebound tenderness. MUSCULOSKELETAL: No obvious deformities. No clubbing. No cyanosis. No edema. NEUROLOGICAL: Awake and alert. No obvious cranial nerve deficits. Motor grossly within normal limits. Normal speech. PSYCHIATRIC: Appropriate mood and affect; insight and judgment normal. Data Data Last Documented VS Vital Signs Date Time Temp Pulse Resp B/P (MAP) Pulse Ox O2 Delivery O2 Flow Rate FiO2 12/23/16 20:45 74 18 155/78 (103) 98 Room Air 12/23/16 19:44 98.4 Orders Orders Ecg Monitoring (12/23/16 20:39) Oximetry (12/23/16 20:39) Chest, Single Ap (12/23/16 20:39) Albuterol-Ipratropium Neb (Duoneb Neb) (12/23/16 20:45) Prednisone (Deltasone) (12/23/16 20:45) [facility] Medical Decision Making Medical Screen Exam Complete: Yes Emergency Medical Condition: Yes Medical Record Reviewed: Yes Interpretation(s) Last Impressions Chest X-Ray 12/23/162038 Signed Impressions: Service Date/Time: Friday, December 23, 2016 20:49 - CONCLUSION: No acute cardiopulmonary abnormality is identified. Bear Zaidi MD Differential Diagnosis Differential diagnosis includes COPD exacerbation, bronchitis, pneumonia, crit myopathy, URI, viral syndrome, influenza. Narrative Course The patient was administered prednisone 60 mg orally and duo nebs sinus 3. Chest x-ray was obtained. Chest x-ray was unremarkable. The patient was reevaluated at 10 PM. The patient states her symptoms have improved. The patient appears to have bronchitis and may benefit from a nebulizer, she is advised to follow-up with her primary physician regards to possible nebulizer. I will treat the patient with prednisone, Zithromax, and albuterol inhaler. She is advised to stop smoking and follow-up with her primary physician. She will be provided a copy of her chest x-ray results at discharge. She is advised to return if symptoms worsen or progress. Diagnosis Primary Impression: Bronchitis Patient Instructions: General Instructions Additional Instructions: Medications as directed. Follow-up with your primary physician. Return if symptoms worsen or progress. Stop smoking. Med/Other Pt SpecificInfo: Prescription(s) given Scripts Albuterol 18 GM Inh (Ventolin Hfa 18 GM Inh) 90 Mcg/Act Aer 2 PUFF INH Q4H Y for SHORTNESS OF BREATH, #1 INHALER 0 Refills Prov: Goyo Manriquez MD 12/23/16 Azithromycin (Zithromax Z-Oscar) 250 Mg Dspk 250 MG PO DIRECTED for Infection, #1 DSPK 0 Refills 500 MG (2 tabs) day 1, then 1 tab days 2-5. Prov: Goyo Manriquez MD 12/23/16 Prednisone (Deltasone) 20 Mg Tab 40 MG PO DAILY for 4 Days, #8 TAB 0 Refills Prov: Goyo Manriquez MD 12/23/16 Disposition: 01 DISCHARGE HOME Condition: Stable Goyo Manriquez MD Dec 23, 2016 20:43
[2016-12-23 20:45] VITALS: BP 155/78; PULSE 74; RESP 18; O2SAT 98
[2016-12-23] MEDS ORDERED: predniSONE 20 MG TAB PO ONE (20:45)
[2016-12-23] MEDS ORDERED: PRED20 PO (20:50)
[2016-12-23] MEDS: RESP: ALBUTEROL 2.5 MG/IPRATROPIUM 0.5 MG NEB (SCH) INH ×3 (20:53→21:13)
--- NOTE | 2016-12-23 21:20 | RADRPT ---
EXAM DATE/TIME: 12/23/2016 20:49 [facility] COMPARISON: CHEST SINGLE AP, August 04, 2016, 21:52. INDICATIONS : Shortness of breath. MEDICAL HISTORY : Hypercholesterolemia. Gastroesophageal reflux disease. Chronic obstructive pulmonary disease. Hyp ertension SURGICAL HISTORY : Fusion, cervical. ENCOUNTER: Initial ACUITY: 1 day PAIN SCORE: 0/10 LOCATION: Bilateral chest FINDINGS: Portable AP view of the chest demonstrates a normal-sized cardiac silhouette. No effusion, consolidat ion, or pneumothorax is visualized. The bones and soft tissues demonstrate no acute abnormality. EKG lines overlie the patient. Cervical spine hardware is present. CONCLUSION: No acute cardiopulmonary abnormality is identified. Bear Zaidi MD on December 23, 2016 at 21:17 Board Certified Radiologist. This report was verified electronically.
[2016-12-23 21:50] VITALS: BP 134/64; PULSE 88; RESP 18; O2SAT 96
[2016-12-23] MEDS ORDERED: PRED-503 PO ×2 (22:11→22:23)
[2016-12-23] MEDS ORDERED: ZITHTAB PO ×2 (22:11→22:23)
[2016-12-23] MEDS ORDERED: VENTAER INH ×2 (22:11→22:23)
== END 2016-12-23 22:29 | disposition home or self-care (01) ==
LOC: PHED 19:22
DX: J40 Bronchitis, not specified as acute or chronic (principal); J44.9 Chronic obstructive pulmonary disease, unspecified; I10 Essential (primary) hypertension; E78.00 Pure hypercholesterolemia, unspecified; M19.90 Unspecified osteoarthritis, unspecified site; Z85.820 Personal history of malignant melanoma of skin; F17.210 Nicotine dependence, cigarettes, uncomplicated
CPT/HCPCS: 71010; 94640; 94664; 99284; J7512

== ENCOUNTER 2017-03-08 22:47 | Emergency (ER) | payer OTHER ==
[~2017-03-08] VITALS: Ht 160 cm; Wt 71.7 kg
[~2017-03-08 22:47] MED LIST changes: -CARA1SUS3 PO; +GABA300C5 PO; -MEDR4PAK PO; +PRED-503 PO; +PRED20 PO; -TRAM50TA PO; +VENTAER INH; +ZITHTAB PO
[2017-03-08 23:02] VITALS: BP 196/107; PULSE 81; RESP 18; TEMP 98; O2SAT 94
[2017-03-08] MEDS ORDERED: HYDR-3583 PO (23:21)
[2017-03-08] MEDS ORDERED: HYDROcodone 5 MG/HOMATROPINE 1.5 MG SYRUP 5 ML CUP PO ONE (23:45)
[2017-03-09] MEDS ORDERED: DEXAMETHASONE SOD PHOS 4 MG/ML VIAL IM ONE
[2017-03-09] MEDS: RESP: ALBUTEROL 2.5 MG/3 ML NEB (SCH) INH ×3 (00:07→01:11)
--- NOTE | 2017-03-09 00:25 | RADRPT ---
EXAM DATE/TIME: 03/08/2017 23:58 [facility] COMPARISON: CT ABDOMEN & PELVIS W/O CONTRAST, June 11, 2016, 1:11. INDICATIONS : Persistant cough for 1 month RADIATION DOSE: 9.32 CTDIvol (mGy) MEDICAL HISTORY : Chronic obstructive pulmonary disease. Gastroesophageal reflux disease. Hypertension. melanoma SURGICAL HISTORY : Fusion, cervical. Hysterectomy.Cholecystectomy. ENCOUNTER: Initial ACUITY: 1 month PAIN SCALE: 0/10 LOCATION: chest TECHNIQUE: Volumetric scanning of the chest was performed. Using automated exposure control and adjustment of t he mA and/or kV according to patient size, radiation dose was kept as low as reasonably achievable to obtain optimal diagnostic quality images. DICOM format image data is available electronically for r eview and comparison. Follow-up recommendations for detected pulmonary nodules are based at a minimum on nodule size and pa tient risk factors according to Fleischner Society Guidelines. FINDINGS: LUNGS: The examination demonstrates COPD changes with mild tubular bronchiectasis. No suspicious mass lesion is identified. PLEURAE: There is no pleural thickening or pleural effusion. MEDIASTINUM: The heart and great vessels demonstrate no acute abnormality. There is no mediastinal or hilar lymph adenopathy. AXILLAE: Within normal limits. No lymphadenopathy. MUSCULOSKELETAL: There are mild degenerative changes in the thoracic spine. MISCELLANEOUS: The visualized upper abdominal organs demonstrate no acute abnormality. CONCLUSION: 1. COPD changes with tubular bronchiectasis. Narciso Ballard MD on March 09, 2017 at 0:21 Board Certified Radiologist. This report was verified electronically.
[2017-03-09] MEDS ORDERED: ONDANSETRON ODT 4 MG TAB PO ONE (00:30)
[2017-03-09 00:33] VITALS: BP 158/95; PULSE 70; RESP 20; O2SAT 96
[2017-03-09] MEDS ORDERED: BENZ100 PO (00:53)
[2017-03-09] MEDS ORDERED: VENTAER INH (00:53)
[2017-03-09] MEDS ORDERED: MEDR4PAK PO (00:53)
--- NOTE | 2017-03-09 00:56 | PD ---
HPI Chief Complaint: Cold / Flu Symptoms Time Seen by Provider: 23:38 Travel History International Travel<30 days: No Contact w/Intl Traveler<30days: No Traveled to known affect area: No History of Present Illness HPI Patient has a 66-year-old female who comes in complaining of a month of cough in has not gotten any better despite seeing her doctor and getting antibiotics. LOCATION:cough QUALITY:dry cough and wheezing SEVERITY: moderate TIMING: per patient not improving DURATION:one month CONTACTS:no recent sick contacts MODIFYING FACTORS:denies aggravating/alleviating factors ASSOCIATED TIME AND SYMPTOMS:denies fever/cp/price/abdpain/backpain/n/v/d/ all:tylenol, codeine, flexeril, toradol, talwin, darvon, morphine pmhx: copd,htn, hyperlipidemia, divertic, hyst. active smoker PFSH Past Medical History Arthritis: Yes (OSTEO) Asthma: Yes Autoimmune Disease: No Blood Disorders: No Anxiety: Yes Depression: Yes Heart Rhythm Problems: No Cancer: Yes (Melanoma) Cardiovascular Problems: No High Cholesterol: No Chemotherapy: No Chest Pain: Yes Congestive Heart Failure: No COPD: Yes Cerebrovascular Accident: No Diabetes: No Diminished Hearing: No Diverticulitis: Yes Endocrine: No Gastrointestinal Disorders: Yes (OBS, IRRITABLE BOWEL) GERD: Yes Glaucoma: No Genitourinary: Yes Headaches: Yes Hepatitis: No Hiatal Hernia: No Hypertension: Yes Immune Disorder: No Implanted Vascular Access Dvce: No Kidney Stones: No Musculoskeletal: Yes (ARTHRITIS) Neurologic: Yes (NUMBNESS AND TINGLING EXTREMETIES) Psychiatric: Yes (Depression, suicidal thoughts, anxiety. ) Reproductive: No Respiratory: Yes (COPD SOB) Integumentary: Yes (RT INNER ANKLE SKIN GRAFT SITE) Immunizations Current: Yes Migraines: Yes Myocardial Infarction: No Radiation Therapy: No Renal Failure: No Seizures: No Sickle Cell Disease: No Sleep Apnea: No Thyroid Disease: No Ulcer: No Tetanus Vaccination: < 5 Years Influenza Vaccination: No PNEUMOCCOCAL Vaccine (Year): 3 ?: Not Menopausal: Yes : 5 Para: 4 Tubal Ligation: Yes Past Surgical History Abdominal Surgery: Yes (CHOLECYSTECTOMY 2004) AICD: No Appendectomy: No Arteriovenous Shunt: No Cardiac Surgery: No Cholecystectomy: Yes (2004) Ear Surgery: No Endocrine Surgery: No Eye Surgery: No Genitourinary Surgery: No Gynecologic Surgery: Yes (HX OF CANCER, CLITORAS REMOVED) Hysterectomy: Yes Insulin Pump: No Joint Replacement: No Neurologic Surgery: Yes (C4-5 FUSION, "cut the nerve endings in my lower back") Oral Surgery: Yes (TEETH FOR PARTIALS) Pacemaker: No Thoracic Surgery: No Other Surgery: Yes (Spinal fusion, Hysterectomy,BKA) Social History Alcohol Use: No Tobacco Use: Yes (1 PPD) Substance Use: Yes (MARIJUANA ON OCCASION) Allergies-Medications (Allergen,Severity, Reaction): Coded Allergies: ketorolac (Unverified Allergy, Severe, ITCHING, 03/08/17) propoxyphene (Unverified Allergy, Severe, N & V; hives, 03/08/17) cyclobenzaprine (Unverified Adverse Reaction, Severe, VOMITING, 03/08/17) pentazocine (Unverified Adverse Reaction, Severe, vomiting, 03/08/17) acetaminophen (Unverified Adverse Reaction, Intermediate, EMESIS, 03/08/17) codeine (Unverified Adverse Reaction, Intermediate, EMESIS, 03/08/17) morphine (Unverified Adverse Reaction, Intermediate, NAUSEA, 03/08/17) STATES NOT ALLERGIC Reported Meds & Prescriptions Reported Meds & Active Scripts Active Ventolin Hfa 18 GM Inh (Albuterol Sulfate) 90 Mcg/Act Aer 2 Puff INH Q4H PRN Proair Hfa 8.5 GM Inh (Albuterol Sulfate) 90 Mcg/Act Aer 2 Puff INH Q4-6H PRN 108 mcg/actuation Reported Hydrocodone-Acetaminophen 10-325 mg Tab 1 Tab PO Q4H PRN Trazodone (Trazodone HCl) 100 Mg Tablet 200 Mg PO HS Omeprazole 40 Mg Cap 40 Mg PO DAILY Enalapril (Enalapril Maleate) 20 Mg Tab 20 Mg PO BID Baclofen 10 Mg Tab 10 Mg PO DAILY Xanax (Alprazolam) 0.25 Mg Tab 0.25 Mg PO Q4H PRN Review of Systems Except as stated in HPI: all other systems reviewed are Neg General / Constitutional: No: Fever Eyes: No: Visual changes HENT: No: Headaches Cardiovascular: No: Chest Pain or Discomfort Respiratory: Positive: Cough, Wheezing Gastrointestinal: No: Abdominal Pain Genitourinary: No: Dysuria Musculoskeletal: No: Pain Skin: No Rash Neurologic: No: Weakness Psychiatric: No: Depression Endocrine: No: Polydipsia Hematologic/Lymphatic: No: Easy Bruising Physical Exam Narrative GENERAL: SKIN: Warm and dry. HEAD: Atraumatic. Normocephalic. EYES: Pupils equal and round. No scleral icterus. No injection or drainage. ENT: No nasal bleeding or discharge. Mucous membranes pink and moist. NECK: Trachea midline. No JVD. CARDIOVASCULAR: Regular rate and rhythm. RESPIRATORY: No accessory muscle use. wheezing bilaterally, but without tripoding/tachypnea/nor decreased tidal volume GASTROINTESTINAL: Abdomen soft, non-tender, nondistended. MUSCULOSKELETAL: Extremities without clubbing, cyanosis, or edema. No obvious deformities. NEUROLOGICAL: Awake and alert. No obvious cranial nerve deficits. Motor grossly within normal limits. Five out of 5 muscle strength in the arms and legs. Normal speech. PSYCHIATRIC: Appropriate mood and affect; insight and judgment normal. Data Data Last Documented VS Vital Signs Date Time Temp Pulse Resp B/P (MAP) Pulse Ox O2 Delivery O2 Flow Rate FiO2 03/09/17 00:33 70 20 158/95 (116) 96 Room Air 03/08/17 23:[address] Thorax/ Chest Wo Iv Contras (03/08/17 ) Hydrocodone-Homatropine Liq (Hycodan Liq (03/08/17 23:45) Albuterol Neb (Albuterol Neb) (03/09/17 00:00) Dexamethasone Inj (Decadron Inj) (03/09/17 00:00) Ondansetron Odt (Zofran Odt) (03/09/17 00:30) [facility] Medical Decision Making Medical Screen Exam Complete: Yes Emergency Medical Condition: Yes Medical Record Reviewed: Yes Differential Diagnosis pna v copd flare v pericardial effusion Narrative Course Patient's wheezing in shortness of breath improved remarkably after receiving IM Decadron an hour-long albuterol breathing treatment. Patient was able to continue having a normal pulse ox of 95% on room air. CT chest did not reveal any evidence of pneumonia mass pericardial effusion or pleural effusion but it did show findings consistent with COPD Diagnosis Primary Impression: copd flare Patient Instructions: COPD (Chronic Obstructive Pulmonary Disease) (ED), General Instructions Scripts Benzonatate (Tessalon Perles) 100 Mg Cap 200 MG PO TID Y for COUGH for 7 Days, #21 CAP 0 Refills Prov: Atilio Martinez MD 03/09/17 Methylprednisolone Dosepak (Medrol Dosepak) 4 Mg Dspk 4 MG PO DIRECTED, #1 DSPK 0 Refills Per Pharmacist direction Prov: Atilio Martinez MD 03/09/17 Albuterol 18 GM Inh (Ventolin Hfa 18 GM Inh) 90 Mcg/Act Aer 2 PUFF INH Q4H Y for SHORTNESS OF BREATH, #1 INHALER 0 Refills Prov: Atilio Martinez MD 03/09/17 Disposition: 01 DISCHARGE HOME Condition: Stable Atilio Martinez MD Mar 09, 2017 00:55
[2017-03-09 01:22] VITALS: BP 150/90; TEMP 98.8
== END 2017-03-09 01:31 | disposition home or self-care (01) ==
LOC: PHED 22:47
DX: J44.1 Chronic obstructive pulmonary disease with (acute) exacerbation (principal); F17.210 Nicotine dependence, cigarettes, uncomplicated; M19.90 Unspecified osteoarthritis, unspecified site; F32.9 Major depressive disorder, single episode, unspecified; I10 Essential (primary) hypertension; K21.9 Gastro-esophageal reflux disease without esophagitis; E78.5 Hyperlipidemia, unspecified
CPT/HCPCS: 71250; 94640; 94664; 96372; 99285; J1100; J7613

== ENCOUNTER 2017-10-12 17:20 | Inpatient (IN) ==
--- NOTE | 2017-10-12 17:56 | ED ---
HPI General Chief Complaint: Psychiatric Symptoms Stated Complaint: psych eval Time Seen by Provider: 10/12/17 17:36 Source: patient Mode of arrival: EMS Limitations: no limitations History of Present Illness HPI Narrative: The patient is a 67-year-old female who presents to the emergency department via EMS after an intentional overdose. The patient states she was prescribed 90 hydrocodone 10/325 earlier this month. The patient states she took approximately 8-9 pills earlier today, unknown time, and an attempt to kill herself. The patient states she has been feeling suicidal and does not "want to live this way anymore ". The patient does have a history of previous suicide attempt 10 years ago. She does note increasing depression and anxiety. She does have a history of chronic pain. The patient does complain of mild nausea after ingesting the medications, however, cannot give a reliable timeline in regards to when she overdosed on the medications. She does note nausea but denies any lower abdominal pain, most of her abdominal pain is located in the epigastrium. 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 The patient was placed under a Randle act prior to being brought to the hospital from [place], [place]. complaint: intentional overdose Onset (ago): unknown Intent: suicide attempt Context: Intentional Overdose: other Associated symptoms: depression Treatments Prior to Arrival: none Related Data Home Medications Medication Instructions Recorded Confirmed alprazolam [Xanax] 2 mg PO BID PRN 10/13/17 10/13/17 baclofen 20 mg PO BID 10/13/17 10/13/17 gabapentin 300 mg PO BID 10/13/17 10/13/17 hydrocodone-acetaminophen 2 tab PO Q6-8H PRN 10/13/17 10/13/17 lisinopril 20 mg PO DAILY 10/13/17 10/13/17 omeprazole 40 mg PO BID 10/13/17 10/13/17 trazodone 200 mg PO DAILY 10/13/17 10/13/17 Allergies Allergy/AdvReac Type Severity Reaction Status Date / Time ketorolac Allergy Severe ITCHING Verified 10/12/17 17:30 propoxyphene Allergy Severe N & V; Verified 10/12/17 17:30 hives cyclobenzaprine AdvReac Severe VOMITING Verified 10/12/17 17:30 pentazocine AdvReac Severe vomiting Verified 10/12/17 17:30 acetaminophen AdvReac Intermediate EMESIS Verified 10/12/17 17:30 codeine AdvReac Intermediate EMESIS Verified 10/12/17 17:30 morphine AdvReac Intermediate NAUSEA Verified 10/12/17 17:30 Review of Systems ROS: all other systems reviewed are negative [facility] Social History Social History Substance History: No History of Abuse Second Hand Smoke Exposure: No Smoking Status: Current every day smoker Tobacco Type: Cigarettes How Often Do You Have a Drink Containing Alcohol: Monthly or less Recent Travel in [facility] within the Last 8 Weeks: No Recent Out of Country Travel within the Last 8 Weeks: No Immunization History Tetanus Immunization: <5 Years Hx Influenza Vaccine This Season: Unable to Assess Exam Narrative Exam Narrative: GENERAL: Awake, alert, pleasant 67-year-old female who appears her stated age and is in no acute respiratory distress. She is tearful. SKIN: Focused skin assessment warm/dry. HEAD: Atraumatic. Normocephalic. EYES: Pupils equal and round. No scleral icterus. No injection or drainage. ENT: No nasal bleeding or discharge. Upper dentures noted. NECK: Trachea midline. No JVD. CARDIOVASCULAR: Regular rate and rhythm. No murmur appreciated. RESPIRATORY: No accessory muscle use. Clear to auscultation. Breath sounds equal bilaterally. GASTROINTESTINAL: Abdomen soft, non-tender, nondistended. MUSCULOSKELETAL: No obvious deformities. No clubbing. No cyanosis. No edema. NEUROLOGICAL: Awake and alert. No obvious cranial nerve deficits. Motor grossly within normal limits. Normal speech. Nonfocal. PSYCHIATRIC: Tearful. Course Initial Documented Vital Signs Pulse Rate 73 10/12/17 17:30 Respiratory Rate 16 10/12/17 17:30 Blood Pressure 172/87 H 10/12/17 17:30 Pulse Oximetry 98 10/12/17 17:30 Last Documented Vital Signs Temperature 97.8 F 10/14/17 06:06 Pulse Rate 86 10/13/17 14:05 Respiratory Rate 20 10/13/17 14:05 Blood Pressure 142/68 H 10/14/17 06:06 Pulse Oximetry 93 L 10/14/17 06:06 Medical Decision Making MDM Narrative Medical decision making narrative: IV was established, labs are drawn and sent, and the patient was placed on cardiac telemetry monitoring and continuous pulse oximetry monitoring. Poison control was contacted. Acetaminophen level and salicylate level were sent to lab. The patient was administered Zofran 4 mg intravenously for nausea and normal saline 500 cc intravenously. The patient's initial Tylenol level was unremarkable. Salicylate level was unremarkable. Therefore, 4-hour level acetaminophen level was ordered. If the acetaminophen level is unremarkable, the patient will be medically cleared to be evaluated by psychiatry. Medical Screen Exam Complete: Yes Emergency Medical Condition: Yes Differential Diagnosis Differential Diagnosis: Differential diagnosis includes intentional overdose, acetaminophen overdose, adjustment reaction, stress reaction, mood disorder, depressive disorder NOS, dysthymia, bipolar affective disorder, personality disorder. Lab Data Lab results narrative: The patient salicylate level and acetaminophen were unremarkable Result diagrams: 10/12/17 18:00 10/12/17 18:00 Lab Results 10/12/17 10/12/17 10/12/17 Range/Units 18:00 18:00 18:00 WBC 8.9 (4.0-11.0) th/mm3 RBC 5.03 (4.00-5.30) mil/mm3 Hgb 14.8 (11.6-15.3) gm/dL Hct 45.0 (35.0-46.0) % MCV 89.4 (80.0-100.0) fL MCH 29.4 (27.0-34.0) pg MCHC 32.9 (32.0-36.0) % RDW 14.5 (11.6-17.2) % Plt Count 232 (150-450) th/mm3 MPV 10.1 (7.0-11.0) fL Prelim Diff (Auto) Slide review pending Neut % (Auto) 66.8 (16.0-70.0) % Lymph % (Auto) 27.2 (9.0-44.0) % [place] % (Auto) 4.6 (0.0-8.0) % Eos % (Auto) 0.5 (0.0-4.0) % Baso % (Auto) 0.9 (0.0-2.0) % Neut # (Auto) 5.9 (1.8-7.7) th/mm3 Lymph # (Auto) 2.4 (1.0-4.8) th/mm3 [place] # (Auto) 0.4 (0.0-0.9) th/mm3 Eos # (Auto) 0.0 (0.0-0.4) th/mm3 Baso # (Auto) 0.1 (0.0-0.2) th/mm3 WBC Differential . Diff Scan Auto diff confirmed Differential Comment . PT 10.6 (9.8-11.6) sec INR 1.0 Ratio Sodium 138 (136-145) meq/L Potassium 4.6 (3.5-5.1) meq/L Chloride 102 (98-107) meq/L Carbon Dioxide 27.3 (21.0-32.0) meq/L Anion Gap 9 (5-15) meq/L BUN 8 (7-18) mg/dL Creatinine 1.11 H (0.50-1.00) mg/dL Estimated GFR 49 L (>89) mL/min Random Glucose 91 (74-106) mg/dL Calcium 9.0 (8.5-10.1) mg/dL Total Bilirubin 0.6 (0.2-1.0) mg/dL AST 48 H (15-37) U/L ALT 27 (10-53) U/L Alkaline Phosphatase 40 L (45-117) U/L Total Protein 7.9 (6.4-8.2) g/dL Albumin 3.9 (3.4-5.0) g/dL Urine Color (Yellw/Straw) Urine Clarity (Clear) Urine pH (5.0-8.5) Ur Specific [place] (1.002-1.035) Urine Protein (Neg-Trace) mg/dL Urine Glucose (UA) (Negative) mg/dL Urine Ketones (Negative) mg/dL Urine Occult Blood (Negative) Urine Nitrate (Negative) Urine Bilirubin (Negative) Urine Urobilinogen (Less than 2) mg/dL Ur Leukocyte Esterase (Negative) Urine WBC (0-5) /hpf Ur Squamous Epith Cells (0-5) /hpf Urine Bacteria (None) /hpf Urine Mucus (Occasional) /lpf Micro UA Comment Ur Microscopic Review Urine Culture Comments Salicylates (2.8-20.0) mg/dL Urine Opiates Screen (Neg) Acetaminophen Less than 2.0 L (10.0-30.0) mcg/mL Ur Barbiturates Screen (Neg) Ur Amphetamines Screen (Neg) U Benzodiazepines Scrn (Neg) Urine Cocaine Screen (Neg) U Cannabinoids Screen (Neg) Serum Alcohol Less than 3 (0-5) mg/dL 10/12/17 10/12/17 10/12/17 Range/Units 18:00 19:59 19:59 WBC (4.0-11.0) th/mm3 RBC (4.00-5.30) mil/mm3 Hgb (11.6-15.3) gm/dL Hct (35.0-46.0) % MCV (80.0-100.0) fL MCH (27.0-34.0) pg MCHC (32.0-36.0) % RDW (11.6-17.2) % Plt Count (150-450) th/mm3 MPV (7.0-11.0) fL Prelim Diff (Auto) Neut % (Auto) (16.0-70.0) % Lymph % (Auto) (9.0-44.0) % [place] % (Auto) (0.0-8.0) % Eos % (Auto) (0.0-4.0) % Baso % (Auto) (0.0-2.0) % Neut # (Auto) (1.8-7.7) th/mm3 Lymph # (Auto) (1.0-4.8) th/mm3 [place] # (Auto) (0.0-0.9) th/mm3 Eos # (Auto) (0.0-0.4) th/mm3 Baso # (Auto) (0.0-0.2) th/mm3 WBC Differential Diff Scan Differential Comment PT (9.8-11.6) sec INR Ratio Sodium (136-145) meq/L Potassium (3.5-5.1) meq/L Chloride (98-107) meq/L Carbon Dioxide (21.0-32.0) meq/L Anion Gap (5-15) meq/L BUN (7-18) mg/dL Creatinine (0.50-1.00) mg/dL Estimated GFR (>89) mL/min Random Glucose (74-106) mg/dL Calcium (8.5-10.1) mg/dL Total Bilirubin (0.2-1.0) mg/dL AST (15-37) U/L ALT (10-53) U/L Alkaline Phosphatase (45-117) U/L Total Protein (6.4-8.2) g/dL Albumin (3.4-5.0) g/dL Urine Color Yellow (Yellw/Straw) Urine Clarity Clear (Clear) Urine pH 6.0 (5.0-8.5) Ur Specific [place] 1.005 (1.002-1.035) Urine Protein Negative (Neg-Trace) mg/dL Urine Glucose (UA) Negative (Negative) mg/dL Urine Ketones Negative (Negative) mg/dL Urine Occult Blood Small H (Negative) Urine Nitrate Negative (Negative) Urine Bilirubin Negative (Negative) Urine Urobilinogen Less than 2 (Less than 2) mg/dL Ur Leukocyte Esterase Negative (Negative) Urine WBC 1 (0-5) /hpf Ur Squamous Epith Cells 2 (0-5) /hpf Urine Bacteria Rare H (None) /hpf Urine Mucus Few H (Occasional) /lpf Micro UA Comment Culture not ind Ur Microscopic Review Not Reportable Urine Culture Comments Culture not ind Salicylates Less than 1.7 L (2.8-20.0) mg/dL Urine Opiates Screen Pos H (Neg) Acetaminophen (10.0-30.0) mcg/mL Ur Barbiturates Screen Neg (Neg) Ur Amphetamines Screen Neg (Neg) U Benzodiazepines Scrn Pos H (Neg) Urine Cocaine Screen Neg (Neg) U Cannabinoids Screen Pos H (Neg) Serum Alcohol (0-5) mg/dL 10/12/17 Range/Units 22:40 WBC (4.0-11.0) th/mm3 RBC (4.00-5.30) mil/mm3 Hgb (11.6-15.3) gm/dL Hct (35.0-46.0) % MCV (80.0-100.0) fL MCH (27.0-34.0) pg MCHC (32.0-36.0) % RDW (11.6-17.2) % Plt Count (150-450) th/mm3 MPV (7.0-11.0) fL Prelim Diff (Auto) Neut % (Auto) (16.0-70.0) % Lymph % (Auto) (9.0-44.0) % [place] % (Auto) (0.0-8.0) % Eos % (Auto) (0.0-4.0) % Baso % (Auto) (0.0-2.0) % Neut # (Auto) (1.8-7.7) th/mm3 Lymph # (Auto) (1.0-4.8) th/mm3 [place] # (Auto) (0.0-0.9) th/mm3 Eos # (Auto) (0.0-0.4) th/mm3 Baso # (Auto) (0.0-0.2) th/mm3 WBC Differential Diff Scan Differential Comment PT (9.8-11.6) sec INR Ratio Sodium (136-145) meq/L Potassium (3.5-5.1) meq/L Chloride (98-107) meq/L Carbon Dioxide (21.0-32.0) meq/L Anion Gap (5-15) meq/L BUN (7-18) mg/dL Creatinine (0.50-1.00) mg/dL Estimated GFR (>89) mL/min Random Glucose (74-106) mg/dL Calcium (8.5-10.1) mg/dL Total Bilirubin (0.2-1.0) mg/dL AST (15-37) U/L ALT (10-53) U/L Alkaline Phosphatase (45-117) U/L Total Protein (6.4-8.2) g/dL Albumin (3.4-5.0) g/dL Urine Color (Yellw/Straw) Urine Clarity (Clear) Urine pH (5.0-8.5) Ur Specific [place] (1.002-1.035) Urine Protein (Neg-Trace) mg/dL Urine Glucose (UA) (Negative) mg/dL Urine Ketones (Negative) mg/dL Urine Occult Blood (Negative) Urine Nitrate (Negative) Urine Bilirubin (Negative) Urine Urobilinogen (Less than 2) mg/dL Ur Leukocyte Esterase (Negative) Urine WBC (0-5) /hpf Ur Squamous Epith Cells (0-5) /hpf Urine Bacteria (None) /hpf Urine Mucus (Occasional) /lpf Micro UA Comment Ur Microscopic Review Urine Culture Comments Salicylates (2.8-20.0) mg/dL Urine Opiates Screen (Neg) Acetaminophen Less than 2.0 L (10.0-30.0) mcg/mL Ur Barbiturates Screen (Neg) Ur Amphetamines Screen (Neg) U Benzodiazepines Scrn (Neg) Urine Cocaine Screen (Neg) U Cannabinoids Screen (Neg) Serum Alcohol (0-5) mg/dL Discharge Plan Discharge Disposition Patient Disposition: 30 Still Patient Discharge Condition Condition: Stable Discharge Details Diagnosis: Suicidal ideation, Intentional acetaminophen overdose Physicians Team ED Provider: Goyo Manriquez Primary Care Provider: UNKNOWN, Attending Provider: Bear Mccarthy Discharge Interventions Interventions: ED Discharge Assessment Last Done: 10/13/17 13:40 Status ED Status: Left Department Discharge Information Discharge Date/Time: 10/13/17 13:41
[2017-10-12] MEDS ORDERED: Sodium Chlor 0.9% Inj 500 ML IV.SIG SCH (18:00)
[2017-10-12 18:27] LABS: Baso # (Auto) 0.1 th/mm3 (0.0-0.2); Baso % (Auto) 0.9 % (0.0-2.0); Eos % (Auto) 0.5 % (0.0-4.0); Hemoglobin 14.8 gm/dL (11.6-15.3); Lymph # (Auto) 2.4 th/mm3 (1.0-4.8); Lymph % (Auto) 27.2 % (9.0-44.0); Mean Corpuscular HGB Conc 32.9 % (32.0-36.0); Mean Corpuscular Hemoglobin 29.4 pg (27.0-34.0); Mean Corpuscular Volume 89.4 fL (80.0-100.0); Mean Platelet Volume 10.1 fL (7.0-11.0); Mono # (Auto) 0.4 th/mm3 (0.0-0.9); Mono % (Auto) 4.6 % (0.0-8.0); Neut # (Auto) 5.9 th/mm3 (1.8-7.7); Neut % (Auto) 66.8 % (16.0-70.0); Platelet Count 232 th/mm3 (150-450); Red Blood Count 5.03 mil/mm3 (4.00-5.30); Red Cell Distribution Width 14.5 % (11.6-17.2); White Blood Count 8.9 th/mm3 (4.0-11.0)
[2017-10-12 18:30] LABS: Prothrombin Time 10.6 sec (9.8-11.6)
[2017-10-12 18:45] LABS: Alanine Aminotransferase 27 U/L (10-53)
[2017-10-12 18:47] LABS: Alkaline Phosphatase 40 U/L (45-117); Total Protein 7.9 g/dL (6.4-8.2)
[2017-10-12 18:55] LABS: Albumin 3.9 g/dL (3.4-5.0); Anion Gap 9 meq/L (5-15); Blood Urea Nitrogen 8 mg/dL (7-18); Carbon Dioxide 27.3 meq/L (21.0-32.0); Chloride 102 meq/L (98-107); Glomerular Filtration Rate 49 mL/min (>89); Glucose,Random 91 mg/dL (74-106); Sodium 138 meq/L (136-145)
[2017-10-12 18:56] LABS: Aspartate Aminotransferase 48 U/L (15-37); Potassium 4.6 meq/L (3.5-5.1)
[2017-10-12 21:57] LABS: Bacteria,Urine Rare /hpf; Bilirubin,Urine Negative (Negative); Clarity,Urine Clear (Clear); Color,Urine Yellow (Yellw/Straw); Glucose,Urine (UA) Negative (Negative); Leukocyte Esterase,Urine Negative (Negative); Mucus,Urine Few /lpf (Occasional); Nitrite,Urine Negative (Negative); Specific Gravity,Urine 1.005 (1.002-1.035); Squamous Epithelial Cell,Urine 2 /hpf (0-5)
[2017-10-12 22:00] LABS: Amphetamine Screen,Urine Neg (Neg); Barbiturate Screen,Urine Neg (Neg); Cannabinoid Screen,Urine Pos (Neg); Cocaine Screen,Urine Neg (Neg)
[2017-10-12 22:06] LABS: Opiate Screen,Urine Pos (Neg)
[2017-10-13] MEDS ORDERED: Haloperidol Inj 5 MG/ML Ampul IV.PUSH PRN (05:19)
[2017-10-13] MEDS ORDERED: Aluminum/Magnesium/Simethacone Susp 30 ML UDC PO PRN (12:16)
[2017-10-13] MEDS ORDERED: TRAZODONE 200 MG PO SCH (12:30)
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
[2017-10-13] MEDS: Lisinopril 20 MG Tablet PO SCH (14:37)
[2017-10-13] MEDS: Gabapentin 300 MG Capsule PO SCH ×2 (14:38→20:41)
[2017-10-13] MEDS: traZODone 100 MG Tablet PO SCH (14:38)
[2017-10-13] MEDS: LORazepam 1 MG Tablet PO PRN ×2 (16:26→21:15)
[2017-10-14] MEDS: LORazepam 1 MG Tablet PO PRN ×2 (06:28→10:27)
[2017-10-14 08:20] LABS: Calcium 8.5 mg/dL (8.5-10.1); Chol/HDL Ratio 3.42 Ratio; HDL Cholesterol 50.5 mg/dL (40.0-60.0); Potassium 3.6 meq/L (3.5-5.1)
[2017-10-14] MEDS: Gabapentin 300 MG Capsule PO SCH ×2 (09:15→20:13)
[2017-10-14] MEDS: Lisinopril 20 MG Tablet PO SCH (09:16)
[2017-10-14] MEDS: traZODone 100 MG Tablet PO SCH (10:26)
[2017-10-14 12:41] LABS: Hemoglobin A1c 5.4 % (4.3-6.0)
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
--- NOTE | 2017-10-14 16:13 | ECG ---
Date Performed: 10/14/2017 Time Performed: 09:54:29 PTAGE: 67 years EKG: JUNCTIONAL RHYTHM Since the previous tracing, no significant change noted ABNORMAL RHYTHM E CG PREVIOUS TRACING : 08/04/2016 21.26 DOCTOR: Damon Robert Interpretating Date/Time 10/14/2017 16:11:35
[2017-10-14] MEDS: QUEtiapine 25 MG Tablet PO SCH ×2 (17:28→20:13)
[2017-10-14 19:14] VITALS: RESP 16
[2017-10-15 06:03] VITALS: O2SAT 92
[2017-10-15] MEDS: Gabapentin 300 MG Capsule PO SCH ×2 (08:56→20:46)
[2017-10-15] MEDS: QUEtiapine 25 MG Tablet PO SCH ×4 (08:56→20:45)
[2017-10-15] MEDS: Lisinopril 20 MG Tablet PO SCH (08:56)
--- NOTE | 2017-10-15 12:31 | P.PNPSY ---
Subjective Remarks: Patient seen in her room with nurse Donna, chart reviewed, it appears patient had an episode of loss of control yesterday evening necessitated 2 doses of IM Ativan. The nurse had talked with patient's sister who states the patient has had a long history of misuse of prescription drugs doctor shopping and overuse of medication. I feel behavior last night may been somewhat manipulative and attempt to gain more benzodiazepine. Today when seen patient continues to be somewhat hysterical histrionic this time putting her hands over her face and complaining of anxiety. Then deflecting her focus on her BK amputation 10 years ago she is in chronic pain and nobody understands this. However it appears she was waving her prosthetic over her bed last night prior to getting the medication last night. In any event I feel that some significant drug-seeking milligram by this lady thus I am revising the Ativan protocols. And adding Atarax to the regimen. Patient shows good behavior over the next 24-36 hours consider discharge home Review of Systems All other systems reviewed negative except as stated in HPI Mental Status Examination Appearance: Disheveled Consciousness: Alert Orientation: x4 Motor Activity: Other (Patient using a walker) Speech: Unremarkable Language: Adequate Fund of Knowledge: Adequate Attention and Concentration: Easily distracted Memory: Unremarkable Mood: Sad, Anxious, Irritable, Other (Client labile and almost hysterical) Affect: Other (Increased range and intensity) Thought Process & Associations: Goal directed (On discharge) Thought Content: Appropriate Hallucination Type: Auditory (Vague and intermittent), Visual ("Little butterflies") Delusion Type: None Suicidal Ideation: Yes (This is vague about taking the suicide pill) Suicidal Plan: No Suicidal Intention: No Homicidal Ideation: No Homicidal Plan: No Homicidal Intention: No Insight: Poor Judgment: Impulsive Assessment and Plan - Assessment (1) Severe recurrent major depression without psychotic features Code(s): F33.2 - Major depressive disorder, recurrent severe without psychotic features Status: Acute - Plan Plan: Patient remains labile somewhat hysterical tearful and manipulative. There appears to be some significant drug-seeking behaviors noted. She medication adjustments above. Justification for Continued Inpatient Stay: At this time patient would decompensate a place to a lower level of care Discharge Planning: Probable return home Request Healthcare Surrogate/Guardian Advocate?: No
[2017-10-15] MEDS: LORazepam 1 MG Tablet PO PRN ×2 (16:02→22:08)
[2017-10-16 05:41] VITALS: BP 134/65; PULSE 58; TEMP 97.3
[2017-10-16] MEDS: Lisinopril 20 MG Tablet PO SCH (08:58)
[2017-10-16] MEDS: Gabapentin 300 MG Capsule PO SCH (08:58)
[2017-10-16] MEDS: QUEtiapine 25 MG Tablet PO SCH ×2 (09:00→14:35)
[2017-10-16] MEDS: LORazepam 1 MG Tablet PO PRN (09:30)
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
== END 2017-10-16 16:22 | disposition home or self-care (01) ==
LOC: NEPD 17:20 → NEDA 10-13 12:14 → H250 10-13 13:17
PROVIDERS: ADMIT Psychiatry & Neurology Psychiatry; ATTEND Psychiatry & Neurology Psychiatry